=== PATIENT | male | born 1990 | race African-American/Black ===

== ENCOUNTER 2019-10-14 18:43 | Emergency (ER) | payer BC, MEDICAID ==
[~2019-10-14] VITALS: Ht 185.4 cm; Wt 98.0 kg
[2019-10-14] MEDS ORDERED: ACETAMINOPHEN 325MG TABLET PO ONE (19:00)
[2019-10-14 21:02] LABS: EOSINOPHILS % 0.5 % (0.0-5.0); HEMATOCRIT. 45.8 % (42.0-52.0); HEMOGLOBIN. 15.5 g/dL (14.0-18.0); LYMPHOCYTES % 31.5 % (20.0-50.0); MEAN CORPUSCULAR HEMOGLOBIN 30.5 pg (28.0-32.0); MEAN CORPUSCULAR VOLUME 90.3 fL (80.0-94.0); MEAN PLATELET VOLUME 8.5 fl (7.4-10.4); MONOCYTES % 10.3 % (2.0-8.0); NEUTROPHILS % 56.7 % (40.0-76.0); PLATELET 233 x1000/uL (130-400); RED BLOOD CELL COUNT 5.08 mill/uL (4.7-6.1); RED CELL DISTRIBUTION WIDTH 13.7 % (11.6-14.6)
[2019-10-14 21:07] LABS: CLARITY URINE CLEAR (CLEAR); COLOR URINE DARK YELLOW (YELLOW); KETONES URINE 4+ (NEGATIVE); LEUKOCYTE ESTERASE URINE NEGATIVE (NEGATIVE); NITRITE URINE NEGATIVE (NEGATIVE); OCCULT BLOOD URINE NEGATIVE (NEGATIVE); PH URINE 5.5 (4.5-8.0); PROTEIN URINE TRACE (NEGATIVE); SPECIFIC GRAVITY URINE 1.029 (1.005-1.030)
[2019-10-14 21:09] LABS: CHLORIDE 102 mEq/L (98-107)
[2019-10-14 21:17] LABS: CREATINE KINASE 173 IU/L (39-308)
[2019-10-14 21:33] VITALS: BP 143/95
== END 2019-10-14 21:37 | disposition home or self-care (01) ==
LOC: ER 18:43
DX: R07.89 Other chest pain (principal); R53.1 Weakness; M79.18 Myalgia, other site; F41.9 Anxiety disorder, unspecified
CPT/HCPCS: 36415; 71045; 80053; 81003; 82550; 82962; 83880; 85025; 87070; 87430; 93005; 99285

== ENCOUNTER 2019-10-21 16:35 | Emergency (ER) | payer MEDICAID ==
[~2019-10-21] VITALS: Ht 185.4 cm; Wt 95.0 kg
[2019-10-21 16:40] VITALS: BP 138/83
== END 2019-10-21 17:10 | disposition left against medical advice (07) ==
LOC: ER 16:35
DX: R06.02 Shortness of breath (principal); Z53.21 Procedure and treatment not carried out due to patient leaving prior to being seen by health care provider

== ENCOUNTER 2019-11-08 13:45 | Emergency (ER) | payer MEDICAID ==
[~2019-11-08] VITALS: Ht 165.1 cm; Wt 75.0 kg
[2019-11-08] MEDS ORDERED: KETOROLAC 60MG/2ML VIAL IM ONE (14:30)
[2019-11-08] MEDS ORDERED: IBUPROFEN 800MG TABLET PO ONE (15:00)
[2019-11-08 16:58] VITALS: BP 123/82
== END 2019-11-08 16:59 | disposition home or self-care (01) ==
LOC: ER 13:57
DX: M54.12 Radiculopathy, cervical region (principal); M54.42 Lumbago with sciatica, left side
CPT/HCPCS: 72040; 72100; 99284

== ENCOUNTER 2020-02-26 00:29 | Emergency (ER) | payer MEDICAID, OTHER ==
[~2020-02-26] VITALS: Ht 185.4 cm; Wt 96.0 kg
[2020-02-26 00:35] VITALS: BP 132/77
== END 2020-02-26 01:21 | disposition home or self-care (01) ==
LOC: ER 00:29
DX: H93.13 Tinnitus, bilateral (principal); H61.23 Impacted cerumen, bilateral
CPT/HCPCS: 99282

== ENCOUNTER 2020-03-05 13:13 | Emergency (ER) | payer MEDICAID, OTHER ==
[~2020-03-05] VITALS: Ht 182.9 cm; Wt 97.0 kg
[2020-03-05 15:49] VITALS: BP 122/80
== END 2020-03-05 15:50 | disposition home or self-care (01) ==
LOC: ER 13:13
DX: R20.0 Anesthesia of skin (principal); R06.02 Shortness of breath; R29.818 Other symptoms and signs involving the nervous system; R03.0 Elevated blood-pressure reading, without diagnosis of hypertension
CPT/HCPCS: 71045; 87426; 99284

== ENCOUNTER 2021-05-05 09:15 | Emergency (ER) | payer OTHER ==
[~2021-05-05] VITALS: Ht 185.4 cm; Wt 106.0 kg
[2021-05-05 09:24] VITALS: BP 151/88
[2021-05-05] MEDS ORDERED: CETI10CA11 MT (11:30)
[2021-05-05] MEDS ORDERED: P50 MT (11:30)
[2021-05-05] MEDS ORDERED: PREDNISONE 20MG TABLET PO ONE (11:30)
[2021-05-05] MEDS ORDERED: FAMOTIDINE 20MG TABLET PO ONE (11:30)
[2021-05-05] MEDS ORDERED: FAMO40TA70 MT (11:30)
[2021-05-06] MEDS ORDERED: CETIRIZINE 10MG TABLET PO SCH (09:00)
== END 2021-05-05 12:12 | disposition home or self-care (01) ==
LOC: ER 09:15
DX: R21 Rash and other nonspecific skin eruption (principal)
CPT/HCPCS: 99283